=== PATIENT | male | born 1935 | race Caucasian/White ===

== ENCOUNTER 2021-03-20 07:39 | Outpatient (CLI) | payer OTHER | END 2021-03-20 08:00 | disposition home or self-care (01) | LOC: WOUND MED 07:39 | PROVIDERS: ATTEND Surgery | DX: L97.822 Non-pressure chronic ulcer of other part of left lower leg with fat layer exposed (principal); L97.812 Non-pressure chronic ulcer of other part of right lower leg with fat layer exposed; I87.2 Venous insufficiency (chronic) (peripheral); R60.0 Localized edema | CPT/HCPCS: G0463; A4554; A4930; A6216; A6219 ==

== ENCOUNTER 2021-03-22 07:08 | Outpatient (CLI) | payer OTHER | END 2021-03-22 09:00 | disposition home or self-care (01) | LOC: WOUND MED 07:08 | PROVIDERS: ATTEND Specialist | DX: R60.0 Localized edema (principal); L97.822 Non-pressure chronic ulcer of other part of left lower leg with fat layer exposed; L97.812 Non-pressure chronic ulcer of other part of right lower leg with fat layer exposed | CPT/HCPCS: 97602; A4554; A4930; A6216; A6219; A6220; A6266 ==

== ENCOUNTER 2021-03-25 07:14 | Outpatient (CLI) | payer OTHER | END 2021-03-25 10:00 | disposition home or self-care (01) | LOC: WOUND MED 07:14 | PROVIDERS: ATTEND Specialist | DX: R60.0 Localized edema (principal); L97.822 Non-pressure chronic ulcer of other part of left lower leg with fat layer exposed; L97.812 Non-pressure chronic ulcer of other part of right lower leg with fat layer exposed | CPT/HCPCS: 97602; A4554; A4930; A6216; A6219; A6220; A6266 ==

== ENCOUNTER 2021-03-27 07:07 | Outpatient (CLI) | payer OTHER | END 2021-03-27 08:00 | disposition home or self-care (01) | LOC: WOUND MED 07:07 | PROVIDERS: ATTEND Surgery | DX: R60.0 Localized edema (principal); L97.822 Non-pressure chronic ulcer of other part of left lower leg with fat layer exposed; L97.312 Non-pressure chronic ulcer of right ankle with fat layer exposed | CPT/HCPCS: G0463; A4554; A4930; A6216; A6266 ==

== ENCOUNTER 2021-03-29 07:22 | Outpatient (CLI) | payer OTHER | END 2021-03-29 08:00 | disposition home or self-care (01) | LOC: WOUND MED 07:22 | PROVIDERS: ATTEND Specialist | DX: R60.0 Localized edema (principal); L97.822 Non-pressure chronic ulcer of other part of left lower leg with fat layer exposed; L97.312 Non-pressure chronic ulcer of right ankle with fat layer exposed | CPT/HCPCS: 97602; A4554; A4930; A6216; A6266 ==

== ENCOUNTER 2021-04-03 07:14 | Outpatient (CLI) | payer OTHER | END 2021-04-03 08:00 | disposition home or self-care (01) | LOC: WOUND MED 07:14 | PROVIDERS: ATTEND Surgery | DX: R60.0 Localized edema (principal); L97.822 Non-pressure chronic ulcer of other part of left lower leg with fat layer exposed; L97.812 Non-pressure chronic ulcer of other part of right lower leg with fat layer exposed | CPT/HCPCS: 97597; A4554; A4930; A6216; A6266 ==

== ENCOUNTER 2021-04-05 07:06 | Outpatient (CLI) | payer OTHER | END 2021-04-05 10:00 | disposition home or self-care (01) | LOC: WOUND MED 07:06 | PROVIDERS: ATTEND Specialist | DX: L97.822 Non-pressure chronic ulcer of other part of left lower leg with fat layer exposed (principal); L97.812 Non-pressure chronic ulcer of other part of right lower leg with fat layer exposed; R60.0 Localized edema | CPT/HCPCS: 97602; A4554; A4930; A6216; A6219 ==

== ENCOUNTER 2021-04-10 07:30 | Outpatient (CLI) | payer OTHER | END 2021-04-10 13:50 | disposition home or self-care (01) | LOC: WOUND MED 07:30 | PROVIDERS: ATTEND Surgery | DX: R60.0 Localized edema (principal); L97.822 Non-pressure chronic ulcer of other part of left lower leg with fat layer exposed; L97.812 Non-pressure chronic ulcer of other part of right lower leg with fat layer exposed | CPT/HCPCS: 97597; A4554; A4930; A6216; A6266 ==

== ENCOUNTER 2021-04-12 07:47 | Outpatient (CLI) | payer OTHER | END 2021-04-12 09:45 | disposition home or self-care (01) | LOC: WOUND MED 07:47 | PROVIDERS: ATTEND Surgery | DX: R60.0 Localized edema (principal); L97.822 Non-pressure chronic ulcer of other part of left lower leg with fat layer exposed; L97.812 Non-pressure chronic ulcer of other part of right lower leg with fat layer exposed | CPT/HCPCS: 97602; A4554; A4930; A6216 ==

== ENCOUNTER 2021-04-15 07:31 | Outpatient (CLI) | payer OTHER | END 2021-04-15 15:07 | disposition home or self-care (01) | LOC: WOUND MED 07:31 | PROVIDERS: ATTEND Surgery | DX: R60.0 Localized edema (principal); L97.822 Non-pressure chronic ulcer of other part of left lower leg with fat layer exposed; L97.812 Non-pressure chronic ulcer of other part of right lower leg with fat layer exposed | CPT/HCPCS: 97602; A4554; A4930; A6216; A6266 ==

== ENCOUNTER 2021-04-17 07:21 | Outpatient (CLI) | payer OTHER | END 2021-04-17 11:11 | disposition home or self-care (01) | LOC: WOUND MED 07:21 | PROVIDERS: ATTEND Surgery | DX: R60.0 Localized edema (principal); L97.822 Non-pressure chronic ulcer of other part of left lower leg with fat layer exposed; L97.812 Non-pressure chronic ulcer of other part of right lower leg with fat layer exposed | CPT/HCPCS: G0463; A4554; A4930; A6216; A6266 ==

== ENCOUNTER 2021-04-24 07:16 | Outpatient (CLI) | payer OTHER | END 2021-04-25 10:37 | disposition home or self-care (01) | LOC: WOUND MED 07:16 | PROVIDERS: ATTEND Surgery | DX: R60.0 Localized edema (principal); L97.822 Non-pressure chronic ulcer of other part of left lower leg with fat layer exposed; L97.812 Non-pressure chronic ulcer of other part of right lower leg with fat layer exposed | CPT/HCPCS: 97597; A4554; A4930; A6021; A6216; A6266 ==

== ENCOUNTER 2021-04-29 07:44 | Outpatient (CLI) | payer OTHER | END 2021-04-29 08:00 | disposition home or self-care (01) | LOC: WOUND MED 07:44 | PROVIDERS: ATTEND Surgery | DX: R60.0 Localized edema (principal); L97.822 Non-pressure chronic ulcer of other part of left lower leg with fat layer exposed; L97.812 Non-pressure chronic ulcer of other part of right lower leg with fat layer exposed | CPT/HCPCS: 97602; A4554; A4930; A6216; A6219; A6266 ==

== ENCOUNTER 2021-05-01 08:25 | Outpatient (CLI) | payer OTHER | END 2021-05-01 10:00 | disposition home or self-care (01) | LOC: WOUND MED 08:25 | PROVIDERS: ATTEND Surgery | DX: R60.0 Localized edema (principal); L97.822 Non-pressure chronic ulcer of other part of left lower leg with fat layer exposed; L97.812 Non-pressure chronic ulcer of other part of right lower leg with fat layer exposed | CPT/HCPCS: G0463; A4554; A4930; A6216; A6266 ==

== ENCOUNTER 2021-05-06 07:14 | Outpatient (CLI) | payer OTHER | END 2021-05-06 14:07 | disposition home or self-care (01) | LOC: WOUND MED 07:14 | PROVIDERS: ATTEND Surgery | DX: R60.0 Localized edema (principal); L97.822 Non-pressure chronic ulcer of other part of left lower leg with fat layer exposed; L97.812 Non-pressure chronic ulcer of other part of right lower leg with fat layer exposed | CPT/HCPCS: 97602; A4554; A4930; A6216; A6219 ==

== ENCOUNTER 2021-05-08 08:11 | Outpatient (CLI) | payer OTHER | END 2021-05-08 09:53 | disposition home or self-care (01) | LOC: WOUND MED 08:11 | PROVIDERS: ATTEND Surgery | DX: R60.0 Localized edema (principal); L97.822 Non-pressure chronic ulcer of other part of left lower leg with fat layer exposed; L97.812 Non-pressure chronic ulcer of other part of right lower leg with fat layer exposed | CPT/HCPCS: G0463; A4554; A4930; A6216; A6266 ==

== ENCOUNTER 2021-05-15 07:31 | Outpatient (CLI) | payer OTHER | END 2021-05-15 09:24 | disposition home or self-care (01) | LOC: WOUND MED 07:31 | PROVIDERS: ATTEND Surgery | DX: R60.0 Localized edema (principal); L97.822 Non-pressure chronic ulcer of other part of left lower leg with fat layer exposed; L97.812 Non-pressure chronic ulcer of other part of right lower leg with fat layer exposed | CPT/HCPCS: A4554; A4930; A6216; A6266; G0463 ==

== ENCOUNTER 2021-05-22 07:56 | Outpatient (CLI) | payer OTHER | END 2021-05-22 15:06 | disposition home or self-care (01) | LOC: WOUND MED 07:56 | PROVIDERS: ATTEND Surgery | DX: R60.0 Localized edema (principal); L97.822 Non-pressure chronic ulcer of other part of left lower leg with fat layer exposed; L97.812 Non-pressure chronic ulcer of other part of right lower leg with fat layer exposed | CPT/HCPCS: G0463; A4554; A4930; A6216; A6266 ==

== ENCOUNTER 2021-05-29 07:19 | Outpatient (CLI) | payer OTHER | END 2021-05-29 09:15 | disposition home or self-care (01) | LOC: WOUND MED 07:19 | PROVIDERS: ATTEND Surgery | DX: R60.0 Localized edema (principal); L97.822 Non-pressure chronic ulcer of other part of left lower leg with fat layer exposed; L97.812 Non-pressure chronic ulcer of other part of right lower leg with fat layer exposed | CPT/HCPCS: 97597; A4554; A4930; A6216; A6266 ==

== ENCOUNTER 2021-06-05 07:19 | Outpatient (CLI) | payer OTHER | END 2021-06-06 14:04 | disposition home or self-care (01) | LOC: WOUND MED 07:19 | PROVIDERS: ATTEND Surgery | DX: R60.0 Localized edema (principal); L97.822 Non-pressure chronic ulcer of other part of left lower leg with fat layer exposed; L97.812 Non-pressure chronic ulcer of other part of right lower leg with fat layer exposed | CPT/HCPCS: G0463; A4554; A4930; A6216; A6266 ==

== ENCOUNTER 2021-06-19 07:37 | Outpatient (CLI) | payer OTHER | END 2021-06-25 13:36 | disposition home or self-care (01) | LOC: WOUND MED 07:37 | PROVIDERS: ATTEND Surgery | DX: R60.0 Localized edema (principal); L97.822 Non-pressure chronic ulcer of other part of left lower leg with fat layer exposed; L97.812 Non-pressure chronic ulcer of other part of right lower leg with fat layer exposed | CPT/HCPCS: G0463; A4554; A4930; A6216; A6219 ==

== ENCOUNTER 2021-07-03 07:21 | Outpatient (CLI) | payer OTHER | END 2021-07-03 07:35 | disposition home or self-care (01) | LOC: WOUND MED 07:21 | PROVIDERS: ATTEND Surgery | DX: I83.228 Varicose veins of left lower extremity with both ulcer of other part of lower extremity and inflammation (principal); L97.822 Non-pressure chronic ulcer of other part of left lower leg with fat layer exposed; R60.0 Localized edema | CPT/HCPCS: G0463; A4554; A4930; A6216; A6219 ==

== ENCOUNTER 2021-07-10 07:21 | Outpatient (CLI) | payer OTHER | END 2021-07-16 14:45 | disposition home or self-care (01) | LOC: WOUND MED 07:21 | PROVIDERS: ATTEND Surgery | DX: I83.228 Varicose veins of left lower extremity with both ulcer of other part of lower extremity and inflammation (principal); L97.822 Non-pressure chronic ulcer of other part of left lower leg with fat layer exposed; L97.812 Non-pressure chronic ulcer of other part of right lower leg with fat layer exposed | CPT/HCPCS: G0463; A4554; A4930; A6216; A6266 ==

== ENCOUNTER 2021-07-17 07:50 | Outpatient (CLI) | payer OTHER | END 2021-07-22 11:34 | disposition home or self-care (01) | LOC: WOUND MED 07:50 | PROVIDERS: ATTEND Surgery | DX: I83.228 Varicose veins of left lower extremity with both ulcer of other part of lower extremity and inflammation (principal); L97.822 Non-pressure chronic ulcer of other part of left lower leg with fat layer exposed; L97.812 Non-pressure chronic ulcer of other part of right lower leg with fat layer exposed; R60.0 Localized edema | CPT/HCPCS: G0463; A4554; A4930; A6197; A6216; A6219 ==

== ENCOUNTER 2021-08-28 08:00 | Outpatient (CLI) | payer OTHER | END 2021-08-28 10:48 | disposition home or self-care (01) | LOC: WOUND MED 08:00 | PROVIDERS: ATTEND Surgery | DX: I83.213 Varicose veins of right lower extremity with both ulcer of ankle and inflammation (principal); I83.223 Varicose veins of left lower extremity with both ulcer of ankle and inflammation; L97.312 Non-pressure chronic ulcer of right ankle with fat layer exposed | CPT/HCPCS: A6219; A6251; G0463 ==

== ENCOUNTER 2021-09-04 07:41 | Outpatient (CLI) | payer OTHER | END 2021-09-04 10:00 | disposition home or self-care (01) | LOC: WOUND MED 07:41 | PROVIDERS: ATTEND Surgery | DX: I83.213 Varicose veins of right lower extremity with both ulcer of ankle and inflammation (principal); I83.223 Varicose veins of left lower extremity with both ulcer of ankle and inflammation; L97.312 Non-pressure chronic ulcer of right ankle with fat layer exposed | CPT/HCPCS: 97602; A4930; A6219; A6223; A6251 ==

== ENCOUNTER 2021-09-11 08:14 | Outpatient (CLI) | payer OTHER | END 2021-09-11 09:30 | disposition home or self-care (01) | LOC: WOUND MED 08:14 | PROVIDERS: ATTEND Surgery | DX: I83.213 Varicose veins of right lower extremity with both ulcer of ankle and inflammation (principal); I83.223 Varicose veins of left lower extremity with both ulcer of ankle and inflammation; L97.312 Non-pressure chronic ulcer of right ankle with fat layer exposed | CPT/HCPCS: 97602; A4930; A6219; A6223; A6251 ==

== ENCOUNTER 2021-09-18 07:42 | Outpatient (CLI) | payer OTHER | END 2021-09-18 08:13 | disposition home or self-care (01) | LOC: WOUND MED 07:42 | PROVIDERS: ATTEND Surgery | DX: I83.213 Varicose veins of right lower extremity with both ulcer of ankle and inflammation (principal); I83.223 Varicose veins of left lower extremity with both ulcer of ankle and inflammation; L97.312 Non-pressure chronic ulcer of right ankle with fat layer exposed | CPT/HCPCS: 97602; A6021; A6251 ==

== ENCOUNTER 2021-12-04 07:47 | Outpatient (CLI) | payer OTHER | END 2021-12-04 10:00 | disposition home or self-care (01) | LOC: WOUND MED 07:47 | PROVIDERS: ATTEND Surgery | DX: I80.3 Phlebitis and thrombophlebitis of lower extremities, unspecified (principal); I87.2 Venous insufficiency (chronic) (peripheral) | CPT/HCPCS: 97602; A4930; A6219; A6223 ==

== ENCOUNTER 2021-12-11 06:34 | Outpatient (CLI) | payer OTHER | END 2021-12-11 07:00 | disposition home or self-care (01) | LOC: WOUND MED 06:34 | PROVIDERS: ATTEND Surgery | DX: I80.3 Phlebitis and thrombophlebitis of lower extremities, unspecified (principal); I87.2 Venous insufficiency (chronic) (peripheral) | CPT/HCPCS: 97597; A4930; A6222; A6223 ==

== ENCOUNTER 2021-12-18 08:15 | Outpatient (CLI) | payer OTHER | END 2021-12-18 09:00 | disposition home or self-care (01) | LOC: WOUND MED 08:15 | PROVIDERS: ATTEND Surgery | DX: I80.3 Phlebitis and thrombophlebitis of lower extremities, unspecified (principal); I87.2 Venous insufficiency (chronic) (peripheral) | CPT/HCPCS: 97597; A4930; A6222; A6223 ==

== ENCOUNTER 2021-12-25 07:24 | Outpatient (CLI) | payer OTHER | END 2021-12-25 08:00 | disposition home or self-care (01) | LOC: WOUND MED 07:24 | PROVIDERS: ATTEND Surgery | DX: I83.218 Varicose veins of right lower extremity with both ulcer of other part of lower extremity and inflammation (principal); I83.228 Varicose veins of left lower extremity with both ulcer of other part of lower extremity and inflammation; L97.812 Non-pressure chronic ulcer of other part of right lower leg with fat layer exposed; L97.822 Non-pressure chronic ulcer of other part of left lower leg with fat layer exposed | CPT/HCPCS: A4930; A6223; G0463 ==

== ENCOUNTER 2022-01-15 06:49 | Outpatient (CLI) | payer OTHER | END 2022-01-15 13:45 | disposition home or self-care (01) | LOC: WOUND MED 06:49 | PROVIDERS: ATTEND Surgery | DX: I83.218 Varicose veins of right lower extremity with both ulcer of other part of lower extremity and inflammation (principal); I83.228 Varicose veins of left lower extremity with both ulcer of other part of lower extremity and inflammation; L97.812 Non-pressure chronic ulcer of other part of right lower leg with fat layer exposed; L97.822 Non-pressure chronic ulcer of other part of left lower leg with fat layer exposed | CPT/HCPCS: 97602; A4930; A6219; A6222; A6223 ==